=== PATIENT | male | born 1980 | race Caucasian/White ===

== ENCOUNTER 2019-10-19 15:39 | Emergency (ER) | payer OTHER, SELFPAY ==
[2019-10-19 15:48] VITALS: BP 152/98; PULSE 87; RESP 16; TEMP 37.2; O2SAT 100
--- NOTE | 2019-10-19 17:16 | ED.EYEPROB ---
HPI - Eye Problem General Chief complaint: Eye Problems Stated complaint: fleeting change in vision Time Seen by Provider: 10/19/19 16:56 Source: patient Mode of arrival: ambulatory Limitations: no limitations History of Present Illness HPI Narrative: Patient presents with chief complaint of 1 episode of central blurry vision at 10:30 AM. Patient denies any headache, nausea, vomiting, speech changes, upper or lower extremity weakness, ocular pain, or neurological deficits. Patient states the episode lasted approximately 15 minutes and resolved without any intervention. Patient states he continues to work the rest of his workday without any other symptoms or concerns. Patient denies any ocular injury or head injury. 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 Patient denies history of previous stroke, cardiac event. Patient denies history of diabetes. Related Data Allergies Allergy/AdvReac Type Severity Reaction Status Date / Time guaifenesin Allergy Unknown Verified 11/04/18 17:31 Penicillins Allergy Unknown Unknown Verified 11/04/18 17:31 Review of Systems Review of Systems: Narrative: CONSTITUTIONAL: Denies fever, chills, or sweats. EYES: Reports an episode of blurry vision denies redness, or discharge. ENT: Denies rhinorrhea, congestion, sore throat, or otalgia. CARDIOVASCULAR: Denies chest pain, palpitations, or edema. RESPIRATORY: Denies cough or dyspnea. GASTROINTESTINAL: Denies abdominal pain, nausea, vomiting, or diarrhea. GENITOURINARY: Denies dysuria or hematuria. SKIN: Denies rash or itching. MUSCULOSKELETAL: Denies back pain, joint pain, or myalgia. NEUROLOGIC: Denies headache, numbness, dizziness, or weakness. PSYCHIATRIC: Denies anxiety or depression. [facility] Family History Family History (Updated 10/07/18 @ 08:56 by DOCTOR UNKNOWN) Father Family history of coronary artery disease Social History Social History Smoking status: Never smoker Second hand tobacco smoke exposure: No Alcohol intake: current Exam Narrative: Exam Narrative: GENERAL: Well-appearing, well-nourished, and in no acute distress. HEAD: Normocephalic, atraumatic. No facial asymmetry. EYES: PERRLA and EOMI. no scleral erythema. No conjunctival hemorrhaging or erythema. No signs of injury. ENT: Nares clear, no rhinorrhea or epistaxis. Mucous membranes moist. Oropharynx without tonsillar hypertrophy exudate or other lesions. Bilateral TMs pearly gardner nonbulging NECK: Supple. No adenopathy or masses. Range of motion intact CHEST: Clear to auscultation. No respiratory distress. No wheezes rales or rhonchi HEART: Regular rate and rhythm. EXTREMITIES: Normal range of motion. No edema. SKIN: Warm, dry, no rash. NEURO: No focal deficits. Alert and oriented x3. Nose to finger test normal. Strength equal bilaterally. Speech is normal PSYCH: Normal mood and affect. Course Vital Signs Vital signs: Vital Signs Temperature 98.9 F 10/19/19 15:48 Pulse Rate 87 10/19/19 15:48 Respiratory Rate 16 10/19/19 15:48 Blood Pressure 152/98 H 10/19/19 15:48 Pulse Oximetry 100 10/19/19 15:48 Temperature 98.9 F 10/19/19 15:48 Pulse Rate 87 10/19/19 15:48 Respiratory Rate 16 10/19/19 15:48 Blood Pressure 152/98 H 10/19/19 15:48 Pulse Oximetry 100 10/19/19 15:48 MDM - Eye Problem MDM Narrative Medical decision making narrative: Discussed with patient the need to follow-up with his primary care and ophthalmology for further evaluation. Instructed patient to return to emergency department if he has any worsening or emergent symptoms such as but not limited to headache, ocular pain, visual changes, neurological deficits,etc. Differential Diagnosis Differential diagnosis: Likely corneal abrasion, conjunctivitis, acute iritis, hyphema, periorbital cellulitis, subconjunctival hemorrhage, glaucoma, corneal ulcer and ruptured globe Discharge Plan Discharge Clinical Impressio
[2019-10-19 17:31] VITALS: BP 128/85; PULSE 64; RESP 18; TEMP 36.6; O2SAT 98
== END 2019-10-19 17:48 | disposition home or self-care (01) ==
PROVIDERS: Emergency Provider Emergency Medicine; PCP Family Medicine
DX: H53.8 Other visual disturbances (principal)
CPT/HCPCS: 99281

== ENCOUNTER 2021-05-31 19:06 | Emergency (ER) | payer OTHER, SELFPAY ==
[2021-05-31 19:14] VITALS: BP 143/90; PULSE 83; RESP 18; TEMP 36.9; O2SAT 98
--- NOTE | 2021-05-31 19:21 | ED.SKABFB ---
HPI - Skin/Abscess/Foreign Bdy General Chief complaint: Skin/Abscess/Foreign Body Stated complaint: Left arm discoloration Time Seen by Provider: 05/31/21 19:21 Source: patient Mode of arrival: ambulatory Limitations: no limitations History of Present Illness HPI narrative: Сергей Brown is a 41 yo male with a PMH of TRICIA per prior notes, given the [facility] for a bite of some sort on his medial left antecubital space. He states it itches after he got a shower today he had a large area of redness with a streak going up his arm that made him concerned and brought him into [facility]. No induration no drainage he has full range of use of his arm He had Covid vaccine and last week got flu shot Related Data Allergies Allergy/AdvReac Type Severity Reaction Status Date / Time guaifenesin Allergy Mild Hives Verified 05/31/21 19:20 Penicillins Allergy Mild Hives Verified 05/31/21 19:20 Review of Systems Review of Systems: CONSTITUTIONAL: Denies fever, chills, sweats. EYES: Denies visual changes, redness, discharge. ENT: Denies rhinorrhea, congestion, sore throat, otalgia. CARDIOVASCULAR: Denies chest pain, palpitations, edema. RESPIRATORY: Denies dyspnea, wheezing, cough GASTROINTESTINAL: Denies abdominal pain, nausea, vomiting, diarrhea. GENITOURINARY: Denies dysuria, hematuria, abnormal discharge SKIN: Denies rash or itching. Lesion to left antecubital area that is red and itches NEUROLOGIC: Denies numbness, or focal weakness. PSYCHIATRIC: Denies anxiety or depression. [facility] Past Medical History Medical History Discolored semen TRICIA (generalized anxiety disorder) Hypercholesterolemia Insomnia (~05/16/19) Mononucleosis Surgical History Surgical History History of removal of cyst (~2006) removed from back Family History Family History Father Family history of coronary artery disease Social History Social History Smoking status: Never smoker Second hand tobacco smoke exposure: No Alcohol intake: current Substance use: never Substance use type: does not use Gender identity (if verbalized by the patient): Male Comments At time of signature, I agree with nursing past medical, surgical, social and family history. There is no relevant family history pertinent to the presenting complaint. Patient's blood pressure is elevated at this visit and should follow-up with his primary care physician this week Exam Narrative: GENERAL: This is a well-nourished, well-developed patient, in mild distress. HEAD: normocephalic, atraumatic. EYES: Sclera clear/white. Vision is grossly intact. EARS: External ears normal, . Hearing grossly intact. NOSE: External nose normal without nasal discharge, nares without redness, no rhinorrhea. THROAT: Mucous membranes moist, NECK: Neck supple, CARDIOVASCULAR: Regular rate and rhythm without murmurs, gallops, or rubs. RESPIRATORY: Clear to auscultation. Breath sounds equal bilaterally. No wheezes, rales, or rhonchi. GASTROINTESTINAL: Abdomen soft, SKIN: warm, intact with small central lesion at the medial antecubital space with very mild redness (3x5) extending from the lesion (<1x1) NEURO: awake, alert, and oriented to person, place and time. There were no obvious focal neurologic abnormalities. Steady gait EXTREMITIES: Normal range of motion. BACK: Nontender without deformity Course Course Emergency Course: Patient came with red lesion to antecubital space of left arm Is using hydrocortisone cream to area to control itching; and concern for infection, so started on cephalexin Vital Signs Vital signs: Vital Signs Temperature 98.4 F 05/31/21 19:14 Pulse Rate 83 05/31/21 19:14 Respiratory Rate 18 05/31/21 19:14 Blood Pressure 143/90 H 05/31/21 19
== END 2021-05-31 19:32 | disposition home or self-care (01) ==
PROVIDERS: Emergency Provider Nurse Practitioner; PCP Family Medicine
DX: L98.9 Disorder of the skin and subcutaneous tissue, unspecified (principal); E78.00 Pure hypercholesterolemia, unspecified
CPT/HCPCS: 99213; G0463

== ENCOUNTER 2022-11-04 12:50 | Emergency (ER) | payer OTHER, SELFPAY ==
--- NOTE | ~2022-11-04 | US_ITS ---
EXAMINATION: US abdomen limited DATE: 11/04/2022 14:47 INDICATION: Right upper quadrant pain TECHNIQUE: Multiple grayscale and Doppler ultrasound images of the abdomen were obtained. COMPARISON: None available FINDINGS: The head and body of the pancreas are normal. The pancreatic tail is obscured by bowel gas. The liver is normal with normal echogenicity and echotexture. No surface nodularity. Normal hepatope hammad flow in the main portal vein. Small polyps of the otherwise normal gallbladder measuring up to 4 mm. The normal common bile duct measures 3 mm. There was no sonographic Becerril sign. IMPRESSION: 1. No sonographic correlate for the patient's symptoms. Reviewed, dictated and finalized at location F.
--- NOTE | ~2022-11-04 | CT_ITS ---
EXAMINATION: CT abdomen pelvis w con DATE: 11/04/2022 13:57 INDICATION: Right upper quadrant and right lower quadrant abdominal pain for 4 days TECHNIQUE: Computed tomography (CT) of the abdomen and pelvis was performed with 100 CC Omnipaque 350 intravenous contrast. Automated exposure control and iterative reconstruction technique were employe d. Exam dose: 395.53 mGy-cm total exam DLP. COMPARISON: None. FINDINGS: The lung bases are clear. Normal heart size. No pericardial or pleural effusion. The liver, spleen, pancreas, and adrenal glands and kidneys are unremarkable. Normal caliber of the a bdominal aorta. No bile duct or pancreatic duct dilatation. Normal appendix. No bowel obstruction or intraperitoneal free air. Normal caliber of the abdominal aorta. No intraperitoneal or retroperitoneal or pelvic mass lesion or adenopathy or ascites. The prostate gland and urinary bladder are unremarkable. Small fat-containing umbilical hernia. Included skeletal structures are unremarkable. IMPRESSION: No significant abnormality Reviewed, dictated and finalized at Location [facility]. Reviewed, dictated and finalized at location B. IMPRESSION: No significant abnormality
[2022-11-04 12:52] VITALS: BP 138/91; PULSE 93; RESP 16; TEMP 37.2; O2SAT 97
[2022-11-04 13:27] LABS: Basophils Percent Auto 0.6 % (0.2-1.2); Eosinophils Percent Auto 0.4 % (0-4.4); Hematocrit 47.7 % (42.0-52.0); Hemoglobin 16.4 g/dL (14.0-18.0); Immature Granulocyte Absolute 0.02 K/mm3 (0.00-0.031); Immature Granulocyte Percent A 0.3 % (0-0.5); Lymphocytes Absolute Auto 1.45 K/mm3 (0.9-3.2); Lymphocytes Percent Auto 21.3 % (18.3-44.2); Mean Corpuscular HGB Conc 34.4 g/dl (32-36); Mean Corpuscular Hemoglobin 31.4 pg (26-34); Mean Corpuscular Volume 91.4 fl (80-100); Mean Platelet Volume 9.2 fl (7.4-10.4); Monocytes Absolute Auto 0.8 K/mm3 (0.1-0.6); Monocytes Percent Auto 11.4 % (2.6-8.5); Neutrophils Absolute Auto 4.5 K/mm3 (1.3-6.7); Platelet Count Result 167 k/mm3 (150-375); Red Blood Count 5.22 M/mm3 (4.6-6.20); Red Cell Distribution Width 12.8 % (11.5-14.5); White Blood Count 6.8 K/mm3 (4.5-10.0)
--- NOTE | 2022-11-04 13:32 | ED.GENADULT ---
HPI - General Adult General Chief complaint: Abdominal Pain Stated complaint: abd pain Time Seen by Provider: 11/04/22 12:57 History of Present Illness HPI narrative: 42-year-old male presenting to the emergency department for evaluation of right-sided abdominal pain associated nausea without vomiting. Patient states he has had this pain over the last few days. Patient reports the pain is worsened with movement. Patient states when he bent over he did have increased pain in the right upper quadrant. Patient denies any constipation or diarrhea. Patient states the pain is worsened when laying on his side at nighttime. Patient does report associated decreased appetite. Patient states he does not take any medications. Patient denies any prior abdominal surgical history. Related Data Home Medications Medication Instructions Recorded Confirmed No Home Medications 07/09/21 07/29/22 Allergies Allergy/AdvReac Type Severity Reaction Status Date / Time guaifenesin Allergy Mild Hives Verified 11/04/22 13:09 Penicillins Allergy Mild Hives Verified 11/04/22 13:09 Review of Systems Review of Systems: All systems reviewed & are unremarkable except as noted in HPI and below PMFSH Past Medical History Medical History (Updated 11/04/22 @ 20:32 by Prabhakar Cheung MD) Anxiety Back strain Discolored semen TRICIA (generalized anxiety disorder) Hypercholesterolemia Mononucleosis Witnessed episode of apnea Surgical History Surgical History History of removal of cyst (~2006) removed from back Family History Family History Father Family history of coronary artery disease Social History Social History Smoking status: Never smoker Second hand tobacco smoke exposure: No Alcohol intake: former Substance use: never Substance use type: does not use Gender identity (if verbalized by the patient): Male Exam Narrative: APPEARANCE: Well appearing, no pain, no distress, well-nourished. HEAD: normocephalic, atraumatic. EYES: PERRLA/EOMI, conjunctivae clear. NOSE: Normal no drainage RESPIRATORY: Airway patent, respirations nonlabored. Clear to auscultation bilaterally, no rales, rhonchi, wheezing. CARDIOVASCULAR: Regular rate and rhythm without murmurs rubs or gallops. ABDOMINAL: Soft, right upper quadrant tenderness and mild right lower tenderness. MUSCULOSKELETAL: Moves all extremities. Strength/ROM intact, No edema, No calf tenderness. NEURO: Alert. Cranial nerves II through XII intact. Grossly intact SKIN: Warm, dry. Normal Color Course Course Emergency Course: 42-year-old male with right side abdominal pain. Differential diagnosis does include cholelithiasis, acute cholecystitis, biliary colic, colitis, appendicitis. Patient was provided IV fluids and CT abdomen pelvis was ordered. Baseline labs were ordered. 3:[address] showed no acute abnormality. Ultrasound showed no evidence of cholelithiasis or cholecystitis. Patient was afebrile with no leukocytosis. Patient's CMP was similar to his baseline. UA showed no evidence of urinary tract infection. Patient was updated on the results of his work-up. Patient does feel improved with treatment. Patient was encouraged to follow a clear liquid diet. Patient was also educated on reasons to return to the emergency department. Family member was present during the discharge instructions. Vital Signs Vital signs: Vital Signs Temperature 99 F 11/04/22 12:52 Pulse Rate 93 11/04/22 12:52 Respiratory Rate 16 11/04/22 12:52 Blood Pressure 138/91 H 11/04/22 12:52 Pulse Oximetry 97 11/04/22 12:52 Oxygen Delivery Room Air 11/04/22 12:52 Temperature 99 F 11/04/22 12:52 Pulse Rate 71 11/04/22 15:02 Respiratory Rate 18 11/04/22 15:02 Blood Pressure 136/84
[2022-11-04] MEDS: SODIUM CHLORIDE 0.9% IV 1,000 ML 999 ML IV CONT (13:36)
[2022-11-04 13:41] LABS: Alanine Aminotransferase 27 U/L (6-50); Albumin Level 5.2 g/dL (3.5-5.1); Alkaline Phosphatase 45 U/L (38-126); Anion Gap 10 mmol/L (8-16); Aspartate Amino Transferase 33 U/L (17-59); Bilirubin,Total 1.1 mg/dL (0.2-1.3); Blood Urea Nitrogen 18 mg/dL (9-20); Calcium 9.2 mg/dL (8.4-10.2); Carbon Dioxide 27 mmol/L (22-30); Chloride 100 mmol/L (98-107); Estimated CRCL calculation 97 ml/min; Estimated Glomerular Filt Rate > 60; Glucose 95 mg/dL (65-110); Lipase 82 U/L (23-300); Potassium 3.7 mmol/L (3.4-5.0); Sodium 137 mmol/L (137-145)
[2022-11-04 13:56] LABS: Appearance Urine Clear (Clear); Bilirubin Urine Negative (Negative); Blood Urine Negative (Negative); Color Urine Yellow (Yellow); Glucose Urine UA Negative (Negative); Ketones Urine Negative (Negative); Leukocyte Esterase Ur Negative LEU/UL (Negative); Nitrate Urine Negative (Negative); Protein Urine Negative (Negative); Specific Grav Ur 1.006 (1.001-1.035); Urobilinogen Urine 0.2 mg/dL (<2.0)
[2022-11-04 14:03] LABS: Add Urine Microscopic? NO
[2022-11-04 15:02] VITALS: BP 136/84; PULSE 71; RESP 18; O2SAT 100
== END 2022-11-04 15:48 | disposition home or self-care (01) ==
PROVIDERS: Emergency Medicine; Emergency Provider Emergency Medicine; PCP Family Medicine
DX: R10.11 Right upper quadrant pain (principal)
CPT/HCPCS: 36415; 74177; 76705; 80053; 81003; 83690; 85025; 96360; 99284; J7030; Q9967

== ENCOUNTER 2023-06-19 12:01 | Emergency (ER) | payer OTHER, SELFPAY ==
--- NOTE | ~2023-06-19 | XR_ITS ---
EXAMINATION: XR knee RT min 4V DATE: 06/19/2023 12:36 INDICATION: Right knee injury and pain. TECHNIQUE: 4 views of right knee were obtained. COMPARISON: None. FINDINGS: Bone alignment is normal. No fracture. Joint spaces are normal. There is anterior knee soft tissue swelling. IMPRESSION: 1. No fracture. Reviewed, dictated and finalized at location A. MANAGEMENT OFFICER IMPRESSION: 1. No fracture.
[2023-06-19 12:02] VITALS: BP 149/88; PULSE 75; RESP 16; TEMP 37.2; O2SAT 100
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
== END 2023-06-19 13:59 | disposition home or self-care (01) ==
PROVIDERS: Emergency Provider Physician Assistant; PCP Family Medicine
DX: S80.01XA Contusion of right knee, initial encounter (principal); E78.00 Pure hypercholesterolemia, unspecified; V18.0XXA Pedal cycle driver injured in noncollision transport accident in nontraffic accident, initial encounter; Y93.55 Activity, bike riding
CPT/HCPCS: 73564; 99283

== ENCOUNTER 2024-02-24 08:56 | Outpatient (CLI) | payer OTHER, SELFPAY ==
--- NOTE | ~2024-02-24 | MR_ITS ---
MRI of the right knee Clinical history: Pain Technique: Coronal proton density and proton density-weighted images, sagittal proton-density and T2 fat-sat images, and axial proton-density fat-saturated images were acquired. Findings: Anterior and posterior cruciate ligaments are intact. Medial collateral ligament and the la teral collateral ligament complex are intact. Popliteus tendon is intact. Medial and lateral menisci are intact, without evidence of tear. Articular cartilage is well preserved throughout the knee. Bone marrow signals are unremarkable. Extensor mechanism is intact. No joint effusion. No significant Villegas's cyst. There is a 1.6 x 1.2 x 1.8 cm lesion in the posterior, lateral aspect of the knee, adjacent to the popliteal vessels, T2 hyp erintense (sagittal image 11). Impression: No acute abnormality seen. 1.6 x 1.2 x 1.8 cm soft tissue lesion at the posterolateral knee, as noted above. This has an overall benign appearance, possibly focal lymphocele or other benign soft tissue lesion. Reviewed, dictated and finalized at [facility]. Impression: No acute abnormality seen. 1.6 x 1.2 x 1.8 cm soft tissue lesion at the posterolateral knee, as noted abov e. This has an overall benign appearance, possibly focal lymphocele or other be nign soft tissue lesion.
== END 2024-02-24 08:57 ==
LOC: MICIMG 08:58
PROVIDERS: PCP Family Medicine; Visit Provider Nurse Practitioner Family
DX: M25.561 Pain in right knee (principal)
CPT/HCPCS: 73721

== ENCOUNTER 2024-03-14 15:17 | Outpatient (CLI) | payer OTHER, SELFPAY ==
--- NOTE | ~2024-03-14 | US_ITS ---
EXAMINATION: US soft tissue LE RT DATE: 03/14/2024 16:05 INDICATION: Soft tissue disorder, unspecified. TECHNIQUE: Multiple grayscale and Doppler ultrasound images of the right lower limb were obtained. COMPARISON: Right knee MRI 02/24/2024 FINDINGS: Lateral to the popliteal vein, there is a 2.5 x 1.7 x 1.7 cm hyperechoic mass with internal vascular flow. IMPRESSION: 1. 2.5 cm mass lateral to the right popliteal vein. The differential diagnosis includes venous malfor mation, peripheral nerve sheath tumor, and less likely malignancy. Consider ultrasound-guided core ne edle biopsy. Reviewed, dictated and finalized at location A. IMPRESSION: 1. 2.5 cm mass lateral to the right popliteal vein. The differential diagnosis includes venous malformation, peripheral nerve sheath tumor, and less likely ma lignancy. Consider ultrasound-guided core needle biopsy.
== END 2024-03-14 15:18 | disposition home or self-care (01) ==
LOC: ANHIMG 15:18
PROVIDERS: PCP Family Medicine; Visit Provider Nurse Practitioner Family
DX: M79.9 Soft tissue disorder, unspecified (principal); M25.561 Pain in right knee
CPT/HCPCS: 76882

== ENCOUNTER 2024-05-08 22:28 | Emergency (ER) | payer OTHER, SELFPAY ==
[2024-05-08 22:31] VITALS: BP 155/93; PULSE 110; RESP 14; TEMP 36.5; O2SAT 98
--- NOTE | 2024-05-08 22:37 | ECG_ITS ---
Test Date: 2024-05-08 22:42:08 Measurements Intervals [place] Rate: 116 P: 39 W[place]: 158 QRS: 29 QRSD: 111 T: -31 QT: 329 QTc: 457 Interpretive Statements SINUS TACHYCARDIA WITH OCCASIONAL VENTRICULAR PREMATURE COMPLEXES WITH FREQUENT SUPRAVENTRICULAR PREMATURE COMPLEXES INCOMPLETE RIGHT BUNDLE BRANCH BLOCK [90+ ms QRS DURATION, TERMINAL R IN V1/V2, 40+ ms S IN I/aVL/V4/V5/V6] ST DEVIATION AND MODERATE T-WAVE ABNORMALITY, CONSIDER LATERAL ISCHEMIA [-0.1+ mV T WAVE IN I/aVL/V5/V6] ST DEVIATION AND MODERATE T-WAVE ABNORMALITY, CONSIDER INFERIOR ISCHEMIA [-0.1+ mV T WAVE IN II/aVF] No previous ECG available for comparison Electronically Signed On 05-09-2024 10:06:22 CDT by Efraín Madrigal M.D.
--- NOTE | 2024-05-09 00:20 | PC.NURSE ---
Pt ambulated to triage desk stating he was going to leave due to wait times and stated his symtpoms have resolved. Pt advised to go to nearest ED for any new or worsening symptoms
== END 2024-05-09 00:20 | disposition left against medical advice (07) ==
PROVIDERS: Emergency Provider Emergency Medicine; PCP Family Medicine
DX: R42 Dizziness and giddiness (principal)
CPT/HCPCS: 93005; 99199